=== PATIENT | female | born 2000 | race Caucasian/White ===

== ENCOUNTER 2018-08-15 11:51 | Emergency (ER) | payer BC ==
[~2018-08-15] VITALS: Ht 160 cm; Wt 68.2 kg
[2018-08-15 11:56] VITALS: TEMP 98.2
[2018-08-15] MEDS ORDERED: Birth Control (11:58)
[2018-08-15 13:57] VITALS: BP 112/68; PULSE 49
== END 2018-08-15 13:57 | disposition home or self-care (01) ==
LOC: COL.ER 11:51
DX: R51 Headache (principal)
CPT/HCPCS: J1885; J2550